=== PATIENT | male | born 1985 | race Caucasian/White ===

== ENCOUNTER 2022-07-31 15:01 | Outpatient (CLI) | payer BC, SELFPAY ==
[2022-07-31 19:37] LABS: Alanine Aminotransferase 34 U/L (6-50); Albumin Level 4.5 g/dL (3.5-5.1); Alkaline Phosphatase 84 U/L (38-126); Anion Gap 7 mmol/L (8-16); Aspartate Amino Transferase 36 U/L (17-59); Bilirubin,Total 0.5 mg/dL (0.2-1.3); Blood Urea Nitrogen 10 mg/dL (9-20); Calcium 9.1 mg/dL (8.4-10.2); Carbon Dioxide 29 mmol/L (22-30); Chloride 99 mmol/L (98-107); Estimated Glomerular Filt Rate > 60; Glucose 80 mg/dL (65-110); Hemoglobin A1C 5.4 % (<5.7); Potassium 4.1 mmol/L (3.4-5.0); Sodium 135 mmol/L (137-145)
== END 2022-07-31 15:02 | disposition home or self-care (01) ==
LOC: ANHGOSHLAB 15:02
PROVIDERS: PCP Emergency Medicine; Visit Provider Emergency Medicine
DX: Z00.00 Encounter for general adult medical examination without abnormal findings (principal)
CPT/HCPCS: 36415; 80053; 83036